=== PATIENT | male | born 1995 | race Caucasian/White ===

== ENCOUNTER → 2016-09-09 | Outpatient (CLI) | payer BC ==
[2016-09-09 10:53] LABS: ALT 17 U/L (21-72); AST 20 U/L (17-59); Alkaline Phosphatase 90 U/L (38-126); Anion Gap 13 mmol/L; Blood Urea Nitrogen 16 mg/dL (9-20); Calcium 9.9 mg/dL (8.4-10.2); Carbon Dioxide 28 mmol/L (22-30); Chloride 103 mmol/L (98-107); Cholesterol 131 mg/dL (<200); Glucose 95 mg/dL (74-99); HDL Cholesterol 55 mg/dL (40-60); Non-African American GFR(MDRD) >60 (>60 ml/min/1.73 sqM); Potassium 4.5 mmol/L (3.5-5.1); Sodium 144 mmol/L (137-145); Total Bilirubin 1.1 mg/dL (0.2-1.3); Total Protein 7.7 g/dL (6.3-8.2); Triglycerides 44 mg/dL (<150)
[2016-09-09 11:00] LABS: Aty Lym Flag Slight; CH 31.3; HCT 47.1 % (39.0-53.0); HDW 2.51; HGB 15.6 gm/dL (13.0-17.5); MCH 30.5 pg (25.0-35.0); MCHC 33.1 g/dL (31.0-37.0); MCV 92.2 fL (80.0-100.0); RBC 5.11 m/uL (4.30-5.90); RDW 12.8 % (11.5-15.5); WBC 5.1 k/uL (4.0-11.0); WBC (Perox) 5.17
[2016-09-09 11:56] LABS: Add Differential Manual Differential
[2016-09-09 11:58] LABS: Manual Review Performed; Nucleated Red Blood Cells 0 /100 WBC (0-0); Total Cells Counted 100
[2016-09-09 11:59] LABS: Reactive Lymphocytes Present
== END | disposition home or self-care (01) ==
LOC: LABWHC1 09:48
PROVIDERS: ATTEND Family Medicine
DX: Z00.00 Encounter for general adult medical examination without abnormal findings (principal)
CPT/HCPCS: 36415; 80053; 80061; 85025